=== PATIENT | female | born 1955 | race Caucasian/White ===

== ENCOUNTER → 2020-11-08 | Outpatient (CLI) | payer BC, MEDICARE ==
[~2020-11-08] MED LIST: AIRDUO; ALBUTEROL1.25 MG/3 INH; ASPIRIN 325MG325 MG PO; CARAFATE1 GM PO; CEFUROXIME500 MG PO; IPRAT-ALBUT 0.5-3 ML INH; LASIX20 MG PO; MULTIVITAMINS1 EAC1 PO; QVAR8.7 G1 INH; SINGULAIR10 MG PO; ZYRTEC10 MG PO
== END ==
LOC: KOH-I 09:00
DX: J01.10 Acute frontal sinusitis, unspecified (principal); J34.89 Other specified disorders of nose and nasal sinuses; J32.2 Chronic ethmoidal sinusitis
CPT/HCPCS: 70486

== ENCOUNTER → 2021-06-12 | Outpatient (CLI) | payer BC, MEDICARE | LOC: KOH-I 16:30 | DX: R06.02 Shortness of breath (principal); J43.9 Emphysema, unspecified | CPT/HCPCS: 71046 ==

== ENCOUNTER → 2021-08-14 | Outpatient (CLI) | payer BC, MEDICARE | LOC: HEART 5 10:44 | DX: J44.9 Chronic obstructive pulmonary disease, unspecified (principal) | CPT/HCPCS: 94060; 94729 ==

== ENCOUNTER → 2021-10-30 | Outpatient (CLI) | payer BC, MEDICARE | LOC: CT 15:00 | DX: G44.329 Chronic post-traumatic headache, not intractable (principal); R43.9 Unspecified disturbances of smell and taste | CPT/HCPCS: 70470; Q9967 ==